=== PATIENT | female | born 1980 | race Two or more races ===

== ENCOUNTER 2020-12-25 12:15 | Inpatient (IN) | payer OTHER ==
[~2020-12-25] VITALS: Ht 160 cm; Wt 93.9 kg
== END 2021-01-02 10:39 | disposition home or self-care (01) | DRG 743 ==
LOC: ADM 12:15 → EDSTATUS 12:15 → O/R 01-01 06:09 → OB/GYN 01-01 12:15 → SURH 01-01 19:31
PROVIDERS: ADMIT Obstetrics & Gynecology Gynecologic Oncology; ATTEND Obstetrics & Gynecology Gynecologic Oncology
PROC: 0DBU4ZZ Excision of Omentum, Percutaneous Endoscopic Approach (ICD-10-PCS; 2021-01-01)
PROC: 0UB54ZZ Excision of Right Fallopian Tube, Percutaneous Endoscopic Approach (ICD-10-PCS; 2021-01-01)
PROC: 07BC4ZZ Excision of Pelvis Lymphatic, Percutaneous Endoscopic Approach (ICD-10-PCS; 2021-01-01)
PROC: 0UT04ZZ Resection of Right Ovary, Percutaneous Endoscopic Approach (ICD-10-PCS; principal; 2021-01-01 14:00)
DX: N83.11 Corpus luteum cyst of right ovary (principal); D36.0 Benign neoplasm of lymph nodes; Z85.89 Personal history of malignant neoplasm of other organs and systems